=== PATIENT | male | born 1995 | race African-American/Black ===

== ENCOUNTER 2017-06-10 17:29 | Emergency (ER) | payer SELFPAY ==
[~2017-06-10] VITALS: Ht 152.4 cm; Wt 72.6 kg
[2017-06-10 18:11] VITALS: BP 124/86
[2017-06-10] MEDS ORDERED: cefTRIAXone SOD 1,000 MG VL IM ONE (21:00)
[2017-06-10] MEDS ORDERED: IBUPROFEN 600 MG TAB PO ONE (21:00)
== END 2017-06-10 21:40 | disposition home or self-care (01) ==
LOC: ER 17:29 → EDBD 17:29 → ER 21:40
DX: S91.332A Puncture wound without foreign body, left foot, initial encounter (principal); F17.210 Nicotine dependence, cigarettes, uncomplicated; W22.8XXA Striking against or struck by other objects, initial encounter; Y93.89 Activity, other specified; Y92.89 Other specified places as the place of occurrence of the external cause; Y99.8 Other external cause status
CPT/HCPCS: 73620; 96372; 99284; J0696